=== PATIENT | female | born 1960 | race Hispanic/Latino ===

== ENCOUNTER 2024-07-12 14:56 | Outpatient (CLI) | payer OTHER | END 2024-07-12 14:57 | disposition home or self-care (01) | LOC: CSHMAMMO 14:56 | PROVIDERS: ATTEND Family Medicine Sports Medicine | DX: Z12.31 Encounter for screening mammogram for malignant neoplasm of breast (principal) | CPT/HCPCS: 77063; 77067 ==

== ENCOUNTER 2025-07-26 10:53 | Outpatient (CLI) | payer MEDICARE, OTHER | END 2025-07-26 10:54 | disposition home or self-care (01) | LOC: CSHMAMMO 10:53 | PROVIDERS: ATTEND Family Medicine Sports Medicine | DX: Z12.31 Encounter for screening mammogram for malignant neoplasm of breast (principal) | CPT/HCPCS: 77063; 77067 ==